=== PATIENT | female | born 1960 | race Two or more races ===

== ENCOUNTER → 2016-10-14 | Outpatient (CLI) | payer BC ==
[2016-10-14 16:09] LABS: BASOPHILS % (AUTO) 0.6 % (0.0-2.0); EOSINOPHILS # (AUTO) 0.2 /CMM (0.0-0.7); EOSINOPHILS % (AUTO) 4.4 % (0.0-6.0); HEMATOCRIT 38 % (33-45); HEMOGLOBIN 12.9 g/dL (11.5-14.8); LYMPHOCYTES # (AUTO) 1.9 /CMM (0.8-4.8); LYMPHOCYTES % (AUTO) 34.2 % (20.0-44.0); MEAN CORPUSCULAR HEMOGLOBIN 31 PG (26.0-33.0); MEAN CORPUSCULAR HGB CONC 34 g/dl (31.0-36.0); MEAN CORPUSCULAR VOLUME 92 fL (82-100); MONOCYTES # (AUTO) 0.5 /CMM (0.1-1.30); MONOCYTES % (AUTO) 9.8 % (2.0-12.0); NEUTROPHILS # (AUTO) 2.9 /CMM (1.8-8.9); PLATELET COUNT (AUTO) 211 /CMM (150-450); RDW COEFFICIENT OF VARIATION 12.8 (11.5-15.0); RED BLOOD CELL COUNT(AUTO) 4.16 MIL/uL (4.0-5.2); WHITE BLOOD COUNT (AUTO) 5.6 K/uL (4.3-11.0)
[2016-10-14 16:14] LABS: ALBUMIN 3.5 g/dL (3.4-5.0); BILIRUBIN,TOTAL 0.2 mg/dL (0.2-1.0); CALCIUM, SERUM 8.8 mg/dL (8.5-10.1); CREATININE 0.6 mg/dL (0.6-1.3); POTASSIUM 3.9 mmol/L (3.5-5.1); TOTAL PROTEIN, SERUM 7.3 g/dL (6.4-8.2)
[2016-10-14 16:21] LABS: THYROID STIMULATING HORMONE 0.652 uIU/mL (0.358-3.74)
[2016-10-15 13:21] LABS: VIT D, 25-HYDROXY 33.4 ng/mL (30.0-100.0)
[2016-10-15 16:14] LABS: *ANA ANTI-CENTROMERE B AB <0.2 AI (0.0-0.9); *ANA ANTI-DNA(DS) AB, QN 1 IU/mL (0-9); *ANA ANTI-JO-1 <0.2 AI (0.0-0.9); *ANA ANTICHROMATIN ANTIBODY <0.2 AI (0.0-0.9); *ANA RNP ANTIBODIES 0.2 AI (0.0-0.9); *ANA SJOGREN'S ANTI-SS-A <0.2 AI (0.0-0.9); *ANA SJOGREN'S ANTI-SS-B <0.2 AI (0.0-0.9); *ANAANTI-SCLERODERMA-70 AB <0.2 AI (0.0-0.9); *ANASMITH AB <0.2 AI (0.0-0.9)
== END ==
LOC: LAB 15:17
PROVIDERS: ATTEND Family Medicine
DX: E55.9 Vitamin D deficiency, unspecified (principal); E03.9 Hypothyroidism, unspecified
CPT/HCPCS: 36415; 73562; 80053-TC; 82306; 84439-TC; 84443-TC; 84550-TC; 85025-TC; 86225; 86235; 86431-TC

== ENCOUNTER 2018-02-02 13:54 | Outpatient (CLI) | payer BC ==
[2018-02-02 14:28] LABS: BILIRUBIN,URINE Negative (NEGATIVE); BLOOD, URINE Moderate Ery/uL (NEGATIVE); COLOR,URINE Yellow (YELLOW); KETONES,URINE Negative (NEGATIVE); LEUKOCYTE ESTERASE ,URINE Negative (NEGATIVE); NITRITE, URINE Negative (NEGATIVE); PH,URINE 5.5 (5.0-8.0); PROTEIN,URINE Negative (NEGATIVE); UGLUCOSE Negative (NEGATIVE); UROBILINOGEN,URINE 0.2 EU/dL (0.2)
[2018-02-02 14:33] LABS: APPEARANCE,URINE SLIGHTLY HAZY (CLEAR)
[2018-02-02 14:34] LABS: BACTERIA,URINE None seen /HPF (None Seen); MUCUS,URINE Few /LPF (None Seen); SQUAMOUS EPITHELIAL CELL,UR Few /HPF (None Seen); WBC,URINE 0-2 /HPF (0-3)
[2018-02-02 14:39] LABS: BASOPHILS % (AUTO) 0.5 % (0.0-2.0); HEMATOCRIT 39 % (33-45); HEMOGLOBIN 13.2 g/dL (11.5-14.8); LYMPHOCYTES # (AUTO) 1.7 /CMM (0.8-4.8); LYMPHOCYTES % (AUTO) 32.4 % (20.0-44.0); MEAN CORPUSCULAR HEMOGLOBIN 32 PG (26.0-33.0); MEAN CORPUSCULAR HGB CONC 34 g/dl (31.0-36.0); MEAN CORPUSCULAR VOLUME 94 fL (82-100); MONOCYTES # (AUTO) 0.4 /CMM (0.1-1.30); MONOCYTES % (AUTO) 6.8 % (2.0-12.0); NEUTROPHILS % (AUTO) 56.3 % (43.0-81.0); PLATELET COUNT (AUTO) 212 /CMM (150-450); RDW COEFFICIENT OF VARIATION 12.7 (11.5-15.0); RED BLOOD CELL COUNT(AUTO) 4.12 MIL/uL (4.0-5.2); WHITE BLOOD COUNT (AUTO) 5.4 K/uL (4.3-11.0)
[2018-02-02 15:16] LABS: ALBUMIN 3.6 g/dL (3.4-5.0); BILIRUBIN,TOTAL 0.2 mg/dL (0.2-1.0); CALCIUM, SERUM 8.8 mg/dL (8.5-10.1); CREATININE 0.8 mg/dL (0.6-1.3); POTASSIUM 3.6 mmol/L (3.5-5.1); TOTAL PROTEIN, SERUM 7.4 g/dL (6.4-8.2)
[2018-02-02 15:32] LABS: FREE T4 (FREE THYROXINE) 1.01 ng/dL (0.76-1.46); THYROID STIMULATING HORMONE 0.745 uIU/mL (0.358-3.74); URIC ACID 3.7 mg/dL (2.6-7.2)
== END 2018-02-02 23:59 | disposition home or self-care (01) ==
LOC: LAB 13:54
PROVIDERS: ATTEND Family Medicine
DX: Z00.01 Encounter for general adult medical examination with abnormal findings (principal); M46.97 Unspecified inflammatory spondylopathy, lumbosacral region; M17.0 Bilateral primary osteoarthritis of knee; E55.9 Vitamin D deficiency, unspecified
CPT/HCPCS: 36415; 72100-TC; 73562; 80053-TC; 80061-TC; 81000-TC; 82306; 84439-TC; 84443-TC; 84550-TC; 85025-TC; 86431-TC; 87086-TC

== ENCOUNTER 2018-09-07 14:45 | Outpatient (CLI) | payer BC | END 2018-09-07 23:59 | disposition home or self-care (01) | LOC: LAB 14:45 | PROVIDERS: ATTEND Family Medicine | DX: M17.0 Bilateral primary osteoarthritis of knee (principal); R31.9 Hematuria, unspecified | CPT/HCPCS: 73560-TC; 87086-TC ==

== ENCOUNTER 2018-10-10 10:41 | Outpatient (CLI) | payer BC ==
[2018-10-10] MEDS ORDERED: IOHEXOL-300 100 ML VIAL IV ONE (11:10)
[2018-10-10] MEDS ORDERED: CT SWABBABLE VALVE TRANS SET 1 EA INFUS.SET MC ONE (11:10)
[2018-10-10] MEDS ORDERED: IV NS 0.9% 250 ML IV ONE (11:10)
== END 2018-10-10 23:59 | disposition home or self-care (01) ==
LOC: CT 10:41
PROVIDERS: ATTEND Family Medicine
DX: J98.11 Atelectasis (principal); I87.8 Other specified disorders of veins; M47.816 Spondylosis without myelopathy or radiculopathy, lumbar region; M43.16 Spondylolisthesis, lumbar region
CPT/HCPCS: 74178; J7050; Q9967

== ENCOUNTER 2019-12-20 18:49 | Emergency (ER) | payer BC, OTHER ==
[~2019-12-20] VITALS: Ht 157.5 cm; Wt 61.7 kg
[2019-12-20 19:10] VITALS: BP 124/63
--- NOTE | 2019-12-20 20:10 | NUR ---
Patient discharged to home in stable condition. Written and verbal after care instructions given. Patient verbalizes understanding of instruction. Pt ambulatory with a steady gait
== END 2019-12-20 20:11 | disposition home or self-care (01) ==
LOC: ER 18:53
DX: Z03.818 Encounter for observation for suspected exposure to other biological agents ruled out (principal); E03.9 Hypothyroidism, unspecified; Z79.890 Hormone replacement therapy
CPT/HCPCS: 99283; U0003

== ENCOUNTER 2020-01-31 13:40 | Emergency (ER) | payer OTHER ==
[~2020-01-31] VITALS: Ht 162.6 cm; Wt 74.8 kg
[2020-01-31 13:43] VITALS: BP 135/81
--- NOTE | 2020-01-31 15:03 | NUR ---
COVID TESTING DONE & SENT TO LAB.
== END 2020-01-31 15:03 | disposition home or self-care (01) ==
LOC: ER 13:42
DX: Z11.59 Encounter for screening for other viral diseases (principal); E03.9 Hypothyroidism, unspecified
CPT/HCPCS: 99283; C9803; U0003

== ENCOUNTER 2020-02-09 13:19 | Emergency (ER) | payer OTHER ==
[~2020-02-09] VITALS: Ht 162.6 cm; Wt 74.8 kg
[2020-02-09 13:25] VITALS: BP 115/63
--- NOTE | 2020-02-09 13:38 | NUR ---
COVID TESTING DONE & SENT TO LAB.
== END 2020-02-09 13:39 | disposition home or self-care (01) ==
LOC: ER 13:21
DX: Z11.59 Encounter for screening for other viral diseases (principal)
CPT/HCPCS: C9803; U0003

== ENCOUNTER 2020-02-20 14:00 | Emergency (ER) | payer OTHER ==
[~2020-02-20] VITALS: Ht 157.5 cm; Wt 62.1 kg
[2020-02-20 14:06] VITALS: BP 129/56
== END 2020-02-20 15:14 | disposition home or self-care (01) ==
LOC: ER 14:00
DX: Z11.59 Encounter for screening for other viral diseases (principal); E03.9 Hypothyroidism, unspecified
CPT/HCPCS: 99283; C9803; U0003

== ENCOUNTER 2020-03-03 15:11 | Emergency (ER) | payer OTHER ==
[~2020-03-03] VITALS: Ht 167.6 cm; Wt 65.8 kg
[2020-03-03 15:14] VITALS: BP 135/81
--- NOTE | 2020-03-03 15:50 | NUR ---
COVID SWAB OBTAINED AND SENT TO LAB.
--- NOTE | 2020-03-03 15:53 | NUR ---
Patient discharged to home in stable condition. Written and verbal after care instructions given. Patient verbalizes understanding of instruction.
== END 2020-03-03 15:54 | disposition home or self-care (01) ==
LOC: ER 15:12
DX: Z11.59 Encounter for screening for other viral diseases (principal); E03.9 Hypothyroidism, unspecified; R03.0 Elevated blood-pressure reading, without diagnosis of hypertension
CPT/HCPCS: 99283; C9803; U0003

== ENCOUNTER 2020-03-12 11:42 | Emergency (ER) | payer OTHER ==
[~2020-03-12] VITALS: Ht 157.5 cm; Wt 63.5 kg
[2020-03-12 11:52] VITALS: BP 105/58
== END 2020-03-12 12:44 | disposition home or self-care (01) ==
LOC: ER 11:42
DX: Z20.828 Contact with and (suspected) exposure to other viral communicable diseases (principal); E03.9 Hypothyroidism, unspecified
CPT/HCPCS: 99283; C9803; U0003

== ENCOUNTER 2020-03-18 15:32 | Emergency (ER) | payer OTHER ==
[~2020-03-18] VITALS: Ht 157.5 cm; Wt 63.5 kg
[2020-03-18 15:37] VITALS: BP 135/81
--- NOTE | 2020-03-18 16:21 | NUR ---
Patient discharged to home in stable condition. Written and verbal after care instructions given. Patient verbalizes understanding of instruction.
== END 2020-03-18 16:21 | disposition home or self-care (01) ==
LOC: ER 15:32
DX: Z20.828 Contact with and (suspected) exposure to other viral communicable diseases (principal); E03.9 Hypothyroidism, unspecified
CPT/HCPCS: 99283; C9803; U0003

== ENCOUNTER 2020-03-26 11:11 | Emergency (ER) | payer OTHER ==
[~2020-03-26] VITALS: Ht 157.5 cm; Wt 63.5 kg
[2020-03-26 11:22] VITALS: BP 135/81
--- NOTE | 2020-03-26 12:01 | NUR ---
COVID SWAB SENT TO LAB
== END 2020-03-26 12:02 | disposition home or self-care (01) ==
LOC: ER 11:11
DX: Z20.828 Contact with and (suspected) exposure to other viral communicable diseases (principal); E03.9 Hypothyroidism, unspecified
CPT/HCPCS: 99283; C9803; U0003

== ENCOUNTER 2020-04-02 14:59 | Emergency (ER) | payer OTHER ==
[~2020-04-02] VITALS: Ht 157.5 cm; Wt 63.5 kg
[2020-04-02 15:02] VITALS: BP 125/62
--- NOTE | 2020-04-02 15:39 | NUR ---
COVID TEST DONE & SENT TO LAB.
== END 2020-04-02 15:40 | disposition home or self-care (01) ==
LOC: ER 14:59
DX: Z20.828 Contact with and (suspected) exposure to other viral communicable diseases (principal); E03.9 Hypothyroidism, unspecified
CPT/HCPCS: 99283; C9803; U0003

== ENCOUNTER 2020-04-23 12:13 | Emergency (ER) | payer OTHER | END 2020-04-23 14:40 | disposition home or self-care (01) | DX: Z20.828 Contact with and (suspected) exposure to other viral communicable diseases (principal); E03.9 Hypothyroidism, unspecified | CPT/HCPCS: 99283; C9803; U0003 ==

== ENCOUNTER 2020-04-29 11:41 | Emergency (ER) | payer OTHER ==
[~2020-04-29] VITALS: Ht 157.5 cm; Wt 62.6 kg
[2020-04-29 11:46] VITALS: BP 135/82
--- NOTE | 2020-04-29 12:31 | NUR ---
COVID SWAB DONE AND SENT TO LAB
--- NOTE | 2020-04-29 12:32 | NUR ---
Patient discharged to home in stable condition. Written and verbal after care instructions given. Patient verbalizes understanding of instruction. Pt ambulatory with a steady gait
== END 2020-04-29 12:33 | disposition home or self-care (01) ==
LOC: ER 11:41
DX: Z20.828 Contact with and (suspected) exposure to other viral communicable diseases (principal); E03.9 Hypothyroidism, unspecified
CPT/HCPCS: 99283; C9803; U0003

== ENCOUNTER 2020-05-12 10:57 | Outpatient (CLI) | payer BC | END 2020-05-12 23:59 | disposition home or self-care (01) | LOC: US 10:57 | PROVIDERS: ATTEND Family Medicine | DX: E03.9 Hypothyroidism, unspecified (principal) | CPT/HCPCS: 76536-TC ==

== ENCOUNTER 2020-05-13 13:25 | Emergency (ER) | payer OTHER, BC ==
[~2020-05-13] VITALS: Ht 157.5 cm; Wt 62.6 kg
[2020-05-13 13:25] VITALS: BP 126/74
--- NOTE | 2020-05-13 13:42 | NUR ---
Patient discharged to home in stable condition. Verbal after care instructions given. Patient verbalizes understanding of instruction. Covid swab sent.
== END 2020-05-13 13:43 | disposition home or self-care (01) ==
LOC: ER 13:26
DX: Z20.828 Contact with and (suspected) exposure to other viral communicable diseases (principal)
CPT/HCPCS: 99283; C9803; U0003

== ENCOUNTER 2020-06-06 08:22 | Emergency (ER) | payer BC, OTHER ==
[~2020-06-06] VITALS: Ht 157.5 cm; Wt 62.6 kg
[2020-06-06 08:23] VITALS: BP 108/57
== END 2020-06-06 08:56 | disposition home or self-care (01) ==
LOC: ER 08:25
DX: Z20.828 Contact with and (suspected) exposure to other viral communicable diseases (principal); E03.9 Hypothyroidism, unspecified
CPT/HCPCS: 99283; C9803; U0003

== ENCOUNTER 2020-06-13 10:38 | Emergency (ER) | payer OTHER ==
[~2020-06-13] VITALS: Ht 157.5 cm; Wt 62.6 kg
[2020-06-13 10:42] VITALS: BP 131/78
== END 2020-06-13 11:10 | disposition home or self-care (01) ==
LOC: ER 10:44
DX: Z20.828 Contact with and (suspected) exposure to other viral communicable diseases (principal); E03.9 Hypothyroidism, unspecified
CPT/HCPCS: 99283; C9803; U0003

== ENCOUNTER 2020-06-25 08:05 | Outpatient (CLI) | payer BC ==
[2020-06-25 08:41] LABS: BASOPHILS % (AUTO) 0.6 % (0.0-2.0); EOSINOPHILS % (AUTO) 3.6 % (0.0-6.0); HEMATOCRIT 40 % (33-45); HEMOGLOBIN 13.6 g/dL (11.5-14.8); LYMPHOCYTES # (AUTO) 1.8 /CMM (0.8-4.8); LYMPHOCYTES % (AUTO) 34.2 % (20.0-44.0); MEAN CORPUSCULAR HGB CONC 34 g/dl (31.0-36.0); MEAN CORPUSCULAR VOLUME 94 fL (82-100); MONOCYTES # (AUTO) 0.5 /CMM (0.1-1.30); NEUTROPHILS # (AUTO) 2.8 /CMM (1.8-8.9); NEUTROPHILS % (AUTO) 52.6 % (43.0-81.0); PLATELET COUNT (AUTO) 197 /CMM (150-450); RED BLOOD CELL COUNT(AUTO) 4.26 MIL/uL (4.0-5.2); WHITE BLOOD COUNT (AUTO) 5.3 K/uL (4.3-11.0)
[2020-06-25 09:05] LABS: ALBUMIN 3.8 g/dL (3.4-5.0); BILIRUBIN,TOTAL 0.4 mg/dL (0.2-1.0); CREATININE 0.7 mg/dL (0.6-1.3); POTASSIUM 4.3 mmol/L (3.5-5.1); TOTAL PROTEIN, SERUM 7.9 g/dL (6.4-8.2)
[2020-06-25 09:19] LABS: THYROID STIMULATING HORMONE 0.983 uIU/mL (0.358-3.74)
[2020-06-26 08:06] LABS: THYROID PEROXIDASE (TPO) AB <9 IU/mL (0-34)
== END 2020-06-25 23:59 | disposition home or self-care (01) ==
LOC: LAB 08:05
PROVIDERS: ATTEND Family Medicine
DX: E03.9 Hypothyroidism, unspecified (principal); E55.9 Vitamin D deficiency, unspecified; E78.2 Mixed hyperlipidemia
CPT/HCPCS: 36415; 80053-TC; 80061-TC; 82306; 84439-TC; 84443-TC; 85025-TC; 86376; 86800

== ENCOUNTER 2020-06-25 08:32 | Emergency (ER) | payer BC, OTHER ==
[~2020-06-25] VITALS: Ht 157.5 cm; Wt 62.6 kg
[2020-06-25 08:33] VITALS: BP 112/58
== END 2020-06-25 09:20 | disposition home or self-care (01) ==
LOC: ER 08:35
DX: Z20.828 Contact with and (suspected) exposure to other viral communicable diseases (principal); E03.9 Hypothyroidism, unspecified
CPT/HCPCS: 99283; C9803; U0003

== ENCOUNTER 2020-07-03 10:59 | Emergency (ER) | payer OTHER ==
[~2020-07-03] VITALS: Ht 157.5 cm; Wt 62.6 kg
[2020-07-03 11:08] VITALS: BP 114/60
== END 2020-07-03 12:43 | disposition home or self-care (01) ==
LOC: ER 10:59
DX: Z20.828 Contact with and (suspected) exposure to other viral communicable diseases (principal); E03.9 Hypothyroidism, unspecified
CPT/HCPCS: 99283; C9803; U0003

== ENCOUNTER 2020-08-20 07:59 | Outpatient (CLI) | payer BC ==
[2020-08-20 08:51] LABS: BASOPHILS % (AUTO) 0.1 % (0.0-2.0); HEMATOCRIT 41 % (33-45); HEMOGLOBIN 13.6 g/dL (11.5-14.8); LYMPHOCYTES # (AUTO) 1.4 /CMM (0.8-4.8); MEAN CORPUSCULAR HGB CONC 33 g/dl (31.0-36.0); MEAN CORPUSCULAR VOLUME 94 fL (82-100); MONOCYTES # (AUTO) 0.5 /CMM (0.1-1.30); MONOCYTES % (AUTO) 5.7 % (2.0-12.0); NEUTROPHILS # (AUTO) 7.4 /CMM (1.8-8.9); NEUTROPHILS % (AUTO) 79.2 % (43.0-81.0); PLATELET COUNT (AUTO) 232 /CMM (150-450); RED BLOOD CELL COUNT(AUTO) 4.36 MIL/uL (4.0-5.2); WHITE BLOOD COUNT (AUTO) 9.4 K/uL (4.3-11.0)
[2020-08-20 09:41] LABS: ALBUMIN 3.8 g/dL (3.4-5.0); BILIRUBIN,TOTAL 0.2 mg/dL (0.2-1.0); CREATININE 0.7 mg/dL (0.6-1.3)
[2020-08-20 09:52] LABS: THYROID STIMULATING HORMONE 0.293 uIU/mL (0.358-3.74)
[2020-08-21 08:06] LABS: THYROID PEROXIDASE (TPO) AB <9 IU/mL (0-34)
== END 2020-08-20 23:59 | disposition home or self-care (01) ==
LOC: LAB 07:59
PROVIDERS: ATTEND Family Medicine
DX: E55.9 Vitamin D deficiency, unspecified (principal); E78.5 Hyperlipidemia, unspecified; R07.0 Pain in throat
CPT/HCPCS: 36415; 80053-TC; 80061-TC; 82306; 84439-TC; 84443-TC; 85025-TC; 86376; 86800

== ENCOUNTER 2022-02-04 14:29 | Outpatient (CLI) | payer BC | END 2022-02-04 23:59 | disposition home or self-care (01) | LOC: RAD 14:29 | PROVIDERS: ATTEND Family Medicine | DX: M19.011 Primary osteoarthritis, right shoulder (principal); M19.031 Primary osteoarthritis, right wrist; M25.711 Osteophyte, right shoulder; M25.731 Osteophyte, right wrist; M79.631 Pain in right forearm | CPT/HCPCS: 73030-TC; 73090-TC ==

== ENCOUNTER 2022-02-08 11:54 | Outpatient (CLI) | payer BC | END 2022-02-08 23:59 | disposition home or self-care (01) | LOC: LAB 11:54 | PROVIDERS: ATTEND Family Medicine | DX: R31.9 Hematuria, unspecified (principal) | CPT/HCPCS: 87086-TC ==

== ENCOUNTER 2022-02-27 14:32 | Emergency (ER) | payer BC, OTHER ==
[~2022-02-27] VITALS: Ht 157.5 cm; Wt 62.1 kg
[2022-02-27 14:50] VITALS: BP 123/68
--- NOTE | 2022-02-27 14:50 | NUR ---
BIBS C/O SORETHROAT AND COUGH X 8 DAYS, AFEBRILE, VITALS ARE WITHIN NORMAL LIMITS.
[2022-02-27] MEDS ORDERED: DEXAMETHASONE 4 MG TABLET ONE (15:12)
[2022-02-27] MEDS ORDERED: PENICILLIN G BENZATHINE 2.4 MMU/4 ML ML IM ONE (15:12)
[2022-02-27] MEDS: PENICILLIN G BENZATHINE 2.4 MMU/4 ML ML IM ONE (15:18)
[2022-02-27] MEDS: DEXAMETHASONE SOLN 5 MG/5 ML UDC PO ONE (15:20)
--- NOTE | 2022-02-27 15:20 | NUR ---
Patient discharged to home in stable condition. Written and verbal after care instructions given. Patient verbalizes understanding of instruction.
--- NOTE | 2022-02-27 15:20 | NUR ---
COVID SWAB DONE AND SENT TO LAB
== END 2022-02-27 15:22 | disposition home or self-care (01) ==
LOC: ER 14:39
DX: J02.9 Acute pharyngitis, unspecified (principal); Z20.822 Contact with and (suspected) exposure to COVID-19; E03.9 Hypothyroidism, unspecified
CPT/HCPCS: 99283; 87426; 96372; J0558; J8540; C9803

== ENCOUNTER 2022-03-10 08:46 | Outpatient (CLI) | payer BC ==
[2022-03-10 11:27] LABS: BILIRUBIN,URINE NEGATIVE (NEGATIVE); COLOR,URINE YELLOW (YELLOW); LEUKOCYTE ESTERASE ,URINE NEGATIVE (NEGATIVE); NITRITE, URINE NEGATIVE (NEGATIVE); PH,URINE 6.5 (5.0-8.0); PROTEIN,URINE NEGATIVE (NEGATIVE); UGLUCOSE NEGATIVE (NEGATIVE); UROBILINOGEN,URINE 0.2 EU/dL (0.2)
[2022-03-10 11:41] LABS: BACTERIA,URINE Rare /HPF (None Seen); SQUAMOUS EPITHELIAL CELL,UR Few /HPF (None Seen); WBC,URINE 0-2 /HPF (0-3)
== END 2022-03-10 23:59 | disposition home or self-care (01) ==
LOC: US 08:46
PROVIDERS: ATTEND Family Medicine
DX: E03.9 Hypothyroidism, unspecified (principal); R31.9 Hematuria, unspecified
CPT/HCPCS: 76536-TC; 81001

== ENCOUNTER 2022-12-24 11:03 | Outpatient (CLI) | payer BC | END 2022-12-24 23:59 | disposition home or self-care (01) | LOC: US 11:03 | PROVIDERS: ATTEND Family Medicine | DX: N81.4 Uterovaginal prolapse, unspecified (principal) | CPT/HCPCS: 76856-TC ==

== ENCOUNTER 2022-12-31 14:06 | Outpatient (CLI) | payer BC ==
[2022-12-31] MEDS ORDERED: GADOTERATE MEGLUMINE 5 MMOL/10 ML VIAL IV ONE (14:07)
== END 2022-12-31 23:59 | disposition home or self-care (01) ==
LOC: MRI 14:06
PROVIDERS: ATTEND Family Medicine
DX: N81.4 Uterovaginal prolapse, unspecified (principal)
CPT/HCPCS: 72197; A9575

== ENCOUNTER 2023-05-18 10:45 | Outpatient (CLI) | payer BC ==
[~2023-05-18 10:45] MED LIST: DOCU-141 PO; HYDR-3972 PO; LEVO100T9 PO; OMEP40CA21 PO
== END 2023-05-18 23:59 | disposition home or self-care (01) ==
LOC: US 10:45
PROVIDERS: ATTEND Family Medicine
DX: R31.9 Hematuria, unspecified (principal)
CPT/HCPCS: 76856-TC